=== PATIENT | male | born 1975 | race Caucasian/White ===

== ENCOUNTER 2024-01-08 11:07 | Observation (INO) ==
[2024-01-08 11:28] LABS: ABS Lymphocytes 1.1 10^3/uL (1.0-4.8); ABS Monocytes 0.4 10^3/uL (0.0-1.1); ABS Neutrophils 3.7 10^3/uL (1.5-7.6); Eosinophil % 0.4 %; Hematocrit 42.8 % (38-53); Hemoglobin 14.4 g/dL (13.2-16.3); Lymphocyte % 21.4 %; Mean Corpuscular Hemoglobin 29.8 pg (27-33); Mean Corpuscular Hgb Conc 33.6 g/dL (31-36); Mean Corpuscular Volume 88.7 fL (80-97); Mean Platelet Volume 9.9 fL (7.5-11.2); Platelet Count 129 10^3/uL (150-450); Red Blood Count 4.83 10^6/uL (4.06-5.63); Red Cell Distribution Width 13.4 % (12-17); White Blood Count 5.3 10^3/uL (3.6-10.2)
[2024-01-08 11:38] LABS: Activated Partial Thrombo Time 23.2 seconds (26.0-38.0); INR 0.99 (0.83-1.13)
[2024-01-08 11:52] LABS: High Sens Troponin Baseline < 3 pg/mL (<20)
[2024-01-08 12:06] LABS: ALT 19 U/L (7-52); AST 17 U/L (13-39); Albumin 4.3 g/dL (3.2-5.2); Albumin/Globulin Ratio 1.8 (1-3); Alkaline Phosphatase 96 U/L (35-149); Anion Gap 6 mmol/L (2-16); Blood Urea Nitrogen 23 mg/dL (6-24); CO2 Carbon Dioxide 25 mmol/L (22-32); Calcium 8.9 mg/dL (8.6-10.3); Chloride 106 mmol/L (101-111); Cholesterol 187 mg/dL; Creatinine, Serum 1.03 mg/dL (0.67-1.17); Direct Bilirubin 0.2 mg/dL (0.03-0.18); Globulin 2.4 g/dL (2-4); Glucose 140 mg/dL (70-100); HDL Cholesterol 41.3 mg/dL; LDL Cholesterol 128 mg/dL; Potassium 4.4 mmol/L (3.5-5.0); Sodium 137 mmol/L (135-145); Total Bilirubin 1.2 mg/dL (0.2-1.0); Total Protein 6.7 g/dL (6.4-8.9); Triglycerides 91 mg/dL; eGFR CKD-EPI 89.6 (>60)
[2024-01-08 13:20] LABS: High Sensitivity Troponin 1 Hr 3 pg/mL (<20)
[2024-01-08] MEDS: Lactated Ringers 1000 ml BAG 1,000 ML IV ONE (13:41)
[2024-01-08 14:55] LABS: RBC Parasite Smear No Parasites Seen (No Parasite)
[2024-01-09 10:27] LABS: TSH Ultra Thyroid Stim Horm 1.31 mcIU/mL (0.34-5.60)
[2024-01-09 10:38] LABS: Folate 17.56 ng/mL (5.90-24.80)
[2024-01-09 10:39] LABS: Vitamin B12 464 pg/mL (180-914)
[2024-01-10 06:15] LABS: ABS Eosinophils 0.1 10^3/uL (0.0-0.5); ABS Lymphocytes 1.7 10^3/uL (1.0-4.8); ABS Monocytes 0.5 10^3/uL (0.0-1.1); ABS Neutrophils 2.5 10^3/uL (1.5-7.6); Hematocrit 43.4 % (38-53); Hemoglobin 14.9 g/dL (13.2-16.3); Lymphocyte % 34.6 %; Mean Corpuscular Hemoglobin 30.7 pg (27-33); Mean Corpuscular Hgb Conc 34.5 g/dL (31-36); Mean Corpuscular Volume 89.1 fL (80-97); Mean Platelet Volume 10.5 fL (7.5-11.2); Platelet Count 139 10^3/uL (150-450); Red Blood Count 4.87 10^6/uL (4.06-5.63); Red Cell Distribution Width 13.3 % (12-17); White Blood Count 4.8 10^3/uL (3.6-10.2)
[2024-01-10 06:32] LABS: Creatinine, Serum 1.06 mg/dL (0.67-1.17); Potassium 4.5 mmol/L (3.5-5.0); eGFR CKD-EPI 86.6 (>60)
[2024-01-10] MEDS: Sulfur Hexaflouride MICROSPHR 25 MG VIAL IV ONE (10:30)
[2024-01-10 13:24] VITALS: BP 128/76
[2024-01-12 21:20] LABS: Anaplasma phagocytophilum Negative (Negative); B. miyamotoi PCR, B Negative (Negative); Babesia divergens/MO-1 Negative (Negative); Babesia ducani Negative (Negative); Ehrlichia chaffeensis Negative (Negative); Ehrlichia ewingii/canis Negative (Negative); Ehrlichia muris eauclairensis Negative (Negative)
== END 2024-01-10 16:10 | disposition home or self-care (01) ==
LOC: EDHOLD 11:07 → ED 11:07 → MEDTELE 14:51
PROVIDERS: ADMIT Student in an Organized Health Care Education/Training Program; ATTEND Student in an Organized Health Care Education/Training Program